=== PATIENT | male | born 1960 | race Caucasian/White ===

== ENCOUNTER 2017-08-29 07:09 | Inpatient (IN) | payer OTHER ==
[~2017-08-29] VITALS: Ht 175.3 cm; Wt 87.9 kg
[~2017-08-29 07:09] MED LIST: LISI-170 PO
[2017-08-29 07:49] LABS: HEMATOCRIT 46.5 % (39.2-51.8); HEMOGLOBIN 16.1 g/dL (13.7-18.0)
[2017-08-29 08:00] LABS: BLOOD UREA NITROGEN 9 mg/dL (7-18)
[2017-08-29] MEDS ORDERED: OMNIPAQUE 350 MG/ML, 100ML BOTTLE ONE (08:58)
[2017-08-29] MEDS ORDERED: AMPICILLIN/SULBACTAM 3 GM in SODIUM CHLORIDE 0.9% 100 ML IV ONE (10:00)
[2017-08-29] MEDS ORDERED: METRONIDAZOLE PMX 500MG/100ML 100 ML IV ONE (10:00)
[2017-08-29] MEDS ORDERED: METRONIDAZOLE PMX 500MG/100ML 100 ML ONE (10:16)
[2017-08-29] MEDS ORDERED: ACETAMINOPHEN 500 MG TABLET PO ONE (11:30)
[2017-08-29] MEDS ORDERED: hydrALAzine 20 MG/ML, 1ML IV ONE (11:30)
[2017-08-29] MEDS ORDERED: ACETAMINOPHEN 500 MG TABLET ONE (11:33)
[2017-08-29] MEDS ORDERED: hydrALAzine 20 MG/ML, 1ML ONE (11:33)
[2017-08-29] MEDS ORDERED: POLYETHYLENE GLYCOL 17 GM PACKET PO PRN (13:00)
[2017-08-29] MEDS ORDERED: ONDANSETRON 2MG/ML, 2ML IVPush PRN (13:00)
[2017-08-29] MEDS ORDERED: BISACODYL 10 MG SUPP PR PRN (13:00)
[2017-08-29] MEDS ORDERED: morphine SULFATE 10 MG/ML, 1ML IVPush PRN (13:00)
[2017-08-29] MEDS ORDERED: LABETALOL 5MG/ML, 20ML IVPush PRN (13:00)
[2017-08-29] MEDS ORDERED: DOCUSATE 100 MG CAPSULE PO PRN (13:00)
[2017-08-29] MEDS ORDERED: HYDROcodone/APAP 5/325 TABLET PO PRN (13:00)
[2017-08-29] MEDS ORDERED: ACETAMINOPHEN 325 MG TABLET PO PRN (13:00)
[2017-08-29] MEDS: SODIUM CHLORIDE 0.9% 1,000 ML IV SCH (13:30)
[2017-08-29 14:09] VITALS: BP 178/102
[2017-08-29] MEDS: ENALAPRILAT 1.25 MG/ML, 2ML IVPush PRN (14:09)
[2017-08-29 14:36] VITALS: BP 165/87
[2017-08-29] MEDS ORDERED: KETOROLAC 30 MG/1 ML IM PRN (15:00)
[2017-08-29 16:30] VITALS: BP 142/84
[2017-08-29] MEDS: PIPERACILLIN/TAZO/PMX 3.375GM 50 ML IV SCH ×2 (16:31→22:40)
[2017-08-29] MEDS: ENOXAPARIN 40 MG/0.4 ML SQ SCH (16:32)
[2017-08-29 20:39] VITALS: BP 158/97
[2017-08-30 01:51] VITALS: BP 154/74
[2017-08-30] MEDS: PIPERACILLIN/TAZO/PMX 3.375GM 50 ML IV SCH ×4 (05:23→22:43)
[2017-08-30 05:45] LABS: HEMATOCRIT 43.6 % (39.2-51.8); HEMOGLOBIN 15.2 g/dL (13.7-18.0); WHITE BLOOD COUNT 8.4 x10^3/uL (3.4-10)
[2017-08-30 05:51] LABS: ASPARTATE AMINO TRANSFERASE 9 U/L (15-37); BLOOD UREA NITROGEN 8 mg/dL (7-18)
[2017-08-30 09:05] VITALS: BP 159/74
[2017-08-30] MEDS: SODIUM CHLORIDE 0.9% 1,000 ML IV SCH (10:45)
[2017-08-30] MEDS ORDERED: KETOROLAC 30 MG/1 ML IM PRN (11:30)
[2017-08-30 12:55] VITALS: BP 176/101
[2017-08-30] MEDS: ENOXAPARIN 40 MG/0.4 ML SQ SCH (13:01)
[2017-08-30] MEDS: ENALAPRILAT 1.25 MG/ML, 2ML IVPush PRN (13:02)
[2017-08-30 14:00] VITALS: BP 159/90
[2017-08-30 18:34] VITALS: BP 128/77
[2017-08-30 19:03] VITALS: BP 142/92
[2017-08-30] MEDS: DOCUSATE 100 MG CAPSULE PO SCH (21:00)
[2017-08-31 02:15] VITALS: BP 181/94
[2017-08-31] MEDS: ENALAPRILAT 1.25 MG/ML, 2ML IVPush PRN (02:20)
[2017-08-31] MEDS: PIPERACILLIN/TAZO/PMX 3.375GM 50 ML IV SCH ×4 (04:27→23:43)
[2017-08-31 07:31] VITALS: BP 142/91
[2017-08-31] MEDS: DOCUSATE 100 MG CAPSULE PO SCH ×2 (08:01→19:31)
[2017-08-31] MEDS: LISINOPRIL 5 MG TABLET PO SCH (08:03)
[2017-08-31] MEDS: ENOXAPARIN 40 MG/0.4 ML SQ SCH (13:02)
[2017-08-31 13:21] VITALS: BP 138/83
[2017-08-31 18:45] VITALS: BP 162/89
[2017-09-01 01:02] VITALS: BP 157/89
[2017-09-01 05:39] LABS: HEMATOCRIT 44.6 % (39.2-51.8); HEMOGLOBIN 15.3 g/dL (13.7-18.0); WHITE BLOOD COUNT 7.7 x10^3/uL (3.4-10)
[2017-09-01 05:48] LABS: BLOOD UREA NITROGEN 9 mg/dL (7-18)
[2017-09-01] MEDS: PIPERACILLIN/TAZO/PMX 3.375GM 50 ML IV SCH ×3 (05:58→18:58)
[2017-09-01 08:33] VITALS: BP 153/84
[2017-09-01] MEDS: LISINOPRIL 5 MG TABLET PO SCH (09:02)
[2017-09-01] MEDS: DOCUSATE 100 MG CAPSULE PO SCH ×2 (09:02→21:00)
[2017-09-01] MEDS: ENOXAPARIN 40 MG/0.4 ML SQ SCH (13:33)
[2017-09-01 15:09] VITALS: BP 153/73
[2017-09-01 18:30] VITALS: BP 157/95
[2017-09-01] MEDS: DIPHENHYDRAMINE 25 MG CAPSULE PO PRN (19:38)
[2017-09-02] MEDS: PIPERACILLIN/TAZO/PMX 3.375GM 50 ML IV SCH ×2 (01:23→06:27)
[2017-09-02] MEDS: DIPHENHYDRAMINE 25 MG CAPSULE PO PRN ×2 (01:25→07:35)
[2017-09-02 01:44] VITALS: BP 148/86
[2017-09-02 06:56] VITALS: BP 169/112
[2017-09-02 07:30] VITALS: BP 158/91
[2017-09-02] MEDS ORDERED: methylPREDNISolone SOD SUCC 125 MG/2 ML IVPush STA (08:03)
[2017-09-02] MEDS: LISINOPRIL 5 MG TABLET PO SCH (08:48)
[2017-09-02] MEDS: DOCUSATE 100 MG CAPSULE PO SCH ×2 (08:48→21:00)
[2017-09-02] MEDS: metroNIDAZOLE 500 MG TABLET PO SCH ×2 (10:37→18:36)
[2017-09-02] MEDS: LOSARTAN 50MG TABLET PO SCH (10:38)
[2017-09-02] MEDS: CIPROFLOXACIN 500 MG TABLET PO SCH ×2 (10:38→21:45)
[2017-09-02 13:40] VITALS: BP 146/88
[2017-09-02] MEDS: ENOXAPARIN 40 MG/0.4 ML SQ SCH (13:59)
[2017-09-02 19:10] VITALS: BP 151/83
[2017-09-03] MEDS: metroNIDAZOLE 500 MG TABLET PO SCH ×2 (01:22→10:26)
[2017-09-03 01:25] VITALS: BP 156/72
[2017-09-03 06:53] VITALS: BP 130/73
[2017-09-03] MEDS: CIPROFLOXACIN 500 MG TABLET PO SCH (08:24)
[2017-09-03] MEDS: LOSARTAN 50MG TABLET PO SCH (08:24)
[2017-09-03] MEDS: DOCUSATE 100 MG CAPSULE PO SCH (08:24)
[2017-09-03] MEDS ORDERED: METR500T PO (10:52)
[2017-09-03] MEDS ORDERED: LOSA50TA2 PO (10:52)
[2017-09-03] MEDS ORDERED: CIPR500T87 PO (10:52)
[2017-09-03] MEDS ORDERED: BISACODYL 10 MG SUPP PR PRN (20:00)
[2017-09-03] MEDS ORDERED: HYDROcodone/APAP 5/325 TABLET PO PRN (20:00)
[2017-09-03] MEDS ORDERED: ACETAMINOPHEN 325 MG TABLET PO PRN (20:00)
[2017-09-03] MEDS ORDERED: LABETALOL 5MG/ML, 20ML IVPush PRN (20:00)
[2017-09-03] MEDS ORDERED: ONDANSETRON 2MG/ML, 2ML IVPush PRN (20:00)
[2017-09-03] MEDS ORDERED: morphine SULFATE 10 MG/ML, 1ML IVPush PRN (20:00)
== END 2017-09-03 12:50 | disposition home or self-care (01) | DRG 392 ==
LOC: ED 09:28 → EDIP 11:36 → 4NOR 13:10
PROVIDERS: ADMIT Hospitalist; ATTEND Hospitalist
DX: K57.80 Diverticulitis of intestine, part unspecified, with perforation and abscess without bleeding (principal); I11.0 Hypertensive heart disease with heart failure; E44.1 Mild protein-calorie malnutrition; I50.9 Heart failure, unspecified; Z88.6 Allergy status to analgesic agent; Z88.8 Allergy status to other drugs, medicaments and biological substances; Z91.018 Allergy to other foods; Z68.28 Body mass index [BMI] 28.0-28.9, adult; F12.90 Cannabis use, unspecified, uncomplicated; F17.290 Nicotine dependence, other tobacco product, uncomplicated; T46.4X5A Adverse effect of angiotensin-converting-enzyme inhibitors, initial encounter; T78.3XXA Angioneurotic edema, initial encounter; Z80.8 Family history of malignant neoplasm of other organs or systems; Z82.5 Family history of asthma and other chronic lower respiratory diseases; Z83.3 Family history of diabetes mellitus
CPT/HCPCS: 36415; 74177; 80048; 80053; 81003; 82040; 85025; 87040; 93005; 96365; 96375; J0295; J1650; J2543; Q9967; J0360; J2930; J7030; J7512; Q0163

== ENCOUNTER 2021-04-01 10:16 | Emergency (ER) | payer OTHER ==
[~2021-04-01] VITALS: Ht 177.8 cm; Wt 80.6 kg
[~2021-04-01 10:16] MED LIST changes: +AMLO-150 PO; +AMOX1TAB12 PO; +CIPR500T87 PO; +CYCL10TA2 PO; +LOSA50TA2 PO; +METR-90 PO; +METR500T PO
--- NOTE | 2021-04-01 10:36 | NUR ---
PT AMBULATORY TO ROOM 7 W/ C/O L SIDE ABD BULGING STARTED 6 WKS AGO WHERE PT HAS COLOSTOMY. STATES NO CHANGES IN OSTOMY OUTPUT. PT ALSO STATES BILAT FLANK PAIN CURRENTLY ON R SIDE. PT ALSO STATES HIS LEFT TESTICLE HAS INCREASED IN SIZE AND THE RIGHT TESTICLE HAS SHRUNK. STATES IT STARTED 3 WKS AGO. DENIES ANY CHANGES IN URINARY OUTPUT. PT RESTING ON GURNEY. NADN. MONITORS APPLIED. VSS. WARM BLANKET PROVIDED. CALL LIGHT IN REACH.
--- NOTE | 2021-04-01 11:02 | NUR ---
ERP DR. PUCKETT AT BEDSIDE FOR EVAL.
[2021-04-01 11:34] LABS: MICROSCOPIC NOT IND
[2021-04-01 11:36] LABS: BASOPHILS % (AUTO) 1 % (0-1); EOSINOPHILS % (AUTO) 2 % (1-7); LYMPHOCYTES % (AUTO) 31 % (22-44); MEAN CORPUSCULAR HGB CONC 35.2 g/dL (33.2-36.2); MEAN PLATELET VOLUME 7.9 fL (7.4-10.4); MONOCYTES % (AUTO) 10 % (2-9); NEUTROPHILS % (AUTO) 56 % (42-75); PLATELET COUNT 270 x10^3/uL (130-400); RED BLOOD COUNT 5.23 x10^6/uL (4.38-5.82); RED CELL DISTRIBUTION WIDTH 13.5 % (9.4-14.8)
[2021-04-01 11:42] LABS: ALBUMIN 3.7 g/dL (3.4-5.0); ANION GAP 6 mmol/L (5-15); CALCIUM 8.4 mg/dL (8.5-10.1); CHLORIDE 106 mmol/L (98-107); CREATININE 0.93 mg/dL (0.7-1.3)
--- NOTE | 2021-04-01 11:54 | NUR ---
PT RESTING ON GURNEY. NAIK. BP REMAINS ELEVATED. PT REMAINS ANXIOUS. STATES "MY BLOOD PRESSURE IS PROBABLY STILL HIGH BECAUSE LAST TIME I WAS HERE I ALMOST SO I'M JUST A LITTLE NERVOUS". Addendum: 04/01/21 at [address] PUCKETT NOTIFIED OF BP.
--- NOTE | 2021-04-01 12:11 | NUR ---
PT CHART REVIEWED AND PLACED FOR RECHECK.
--- NOTE | 2021-04-01 12:54 | NUR ---
ERP DR. PUCKETT AT BEDSIDE FOR RE-EVAL.
[2021-04-01 12:58] VITALS: BP 171/96
== END 2021-04-01 13:18 | disposition home or self-care (01) ==
LOC: ED 10:56
DX: N43.3 Hydrocele, unspecified (principal); R19.00 Intra-abdominal and pelvic swelling, mass and lump, unspecified site; M54.5 Low back pain; I11.0 Hypertensive heart disease with heart failure; I50.9 Heart failure, unspecified
CPT/HCPCS: 36415; 76870; 80048; 81003; 82040; 85025; 99284

== ENCOUNTER → 2021-06-05 | Outpatient (CLI) | payer OTHER ==
[~2021-06-05] MED LIST changes: +CHOL10003 PO; +MULT-795 PO
[2021-06-05 10:05] LABS: BASOPHILS % (AUTO) 1 % (0-1); EOSINOPHILS % (AUTO) 3 % (1-7); LYMPHOCYTES % (AUTO) 26 % (22-44); MEAN CORPUSCULAR HEMOGLOBIN 31.7 pg (27.5-34.5); MEAN CORPUSCULAR HGB CONC 35.2 g/dL (33.2-36.2); MEAN PLATELET VOLUME 7.7 fL (7.4-10.4); MONOCYTES % (AUTO) 8 % (2-9); NEUTROPHILS % (AUTO) 61 % (42-75); PLATELET COUNT 258 x10^3/uL (130-400); RED BLOOD COUNT 5.21 x10^6/uL (4.38-5.82); RED CELL DISTRIBUTION WIDTH 13.3 % (9.4-14.8)
[2021-06-05 10:15] LABS: CHLORIDE 108 mmol/L (98-107)
[2021-06-05 10:20] LABS: ALANINE AMINOTRANSFERASE 26 U/L (12-78); ALBUMIN 3.4 g/dL (3.4-5.0); ALKALINE PHOSPHATASE 51 U/L (45-117); ANION GAP 4 mmol/L (5-15); BILIRUBIN,TOTAL 0.8 mg/dL (0.2-1.0); CALCIUM 8.6 mg/dL (8.5-10.1); CREATININE 0.95 mg/dL (0.7-1.3); TOTAL PROTEIN 6.7 g/dL (6.4-8.2)
== END | disposition home or self-care (01) ==
LOC: STAR 09:10
PROVIDERS: ATTEND Colon & Rectal Surgery
DX: Z01.812 Encounter for preprocedural laboratory examination (principal); Z20.822 Contact with and (suspected) exposure to COVID-19; Z01.818 Encounter for other preprocedural examination; I44.7 Left bundle-branch block, unspecified
CPT/HCPCS: 36415; 80053; 85025; 93005; U0003; U0005

== ENCOUNTER 2021-06-11 06:20 | Inpatient (IN) | payer OTHER ==
[~2021-06-11] VITALS: Ht 175.3 cm; Wt 85.5 kg
[2021-06-11] MEDS ORDERED: FLUORESCEIN SODIUM 500 MG/5 ML ONE (06:25)
[2021-06-11] MEDS ORDERED: BUPIVACAINE/PF 0.5% ONE (06:25)
[2021-06-11] MEDS ORDERED: EPINEPHRINE 1 MG/ML, 1ML ONE (06:25)
[2021-06-12 11:09] VITALS: BP 156/91
[2021-06-12] MEDS ORDERED: AMLO-150 PO (11:09)
[2021-06-12] MEDS ORDERED: CHLORHEXIDINE 15 ML UDC ONE (11:15)
[2021-06-12] MEDS ORDERED: LACTATED RINGERS 1,000 ML IV SCH (11:30)
[2021-06-12] MEDS ORDERED: CHLORHEXIDINE 15 ML UDC PO ONE (11:30)
[2021-06-12] MEDS ORDERED: BUPIVACAINE/PF 0.5% ONE (12:53)
[2021-06-12] MEDS ORDERED: FLUORESCEIN SODIUM 500 MG/5 ML ONE (12:53)
[2021-06-12] MEDS ORDERED: INDOCYANINE GREEN 25 MG VIAL ONE (12:53)
[2021-06-12] MEDS ORDERED: FENTANYL PF 100 MCG/2ML ONE ×2 (17:47→18:57)
[2021-06-12] MEDS: FENTANYL PF 100 MCG/2ML IV PRN ×4 (17:50→18:59)
[2021-06-12] MEDS ORDERED: LABETALOL 5MG/ML, 20ML IV PRN (18:30)
[2021-06-12] MEDS ORDERED: OXYcodone 5 MG/5 ML ORAL.SOL UDC PO PRN (18:30)
[2021-06-12] MEDS ORDERED: hydrALAzine 20 MG/ML, 1ML IV PRN (18:30)
[2021-06-12] MEDS ORDERED: ACETAMINOPHEN 325 MG TABLET PO PRN (18:30)
[2021-06-12] MEDS ORDERED: MEPERIDINE/PF 25MG/0.5ML IVPush PRN (18:30)
[2021-06-12] MEDS ORDERED: PROMETHAZINE 25 MG/ML, 1ML IVPush PRN (18:30)
[2021-06-12] MEDS ORDERED: hydrALAzine 20 MG/ML, 1ML ONE (18:52)
[2021-06-12] MEDS ORDERED: ACETAMINOPHEN 650 MG/20.3 ML UDC ONE (18:57)
[2021-06-12] MEDS ORDERED: OXYcodone 5 MG/5 ML ORAL.SOL UDC ONE (18:57)
[2021-06-12] MEDS ORDERED: DEXAMETHASONE 4 MG/ML, 1ML IVPush PRN (21:00)
[2021-06-12] MEDS: ACETAMINOPHEN 500 MG TABLET PO SCH (21:00)
[2021-06-12] MEDS ORDERED: OXYcodone IR 5MG TABLET PO PRN (21:00)
[2021-06-12] MEDS ORDERED: LORazepam 2 MG/ML, 1ML IVPush PRN (21:00)
[2021-06-12] MEDS ORDERED: CALCIUM CARBONATE 500 MG TAB.CHEW PO PRN (21:00)
[2021-06-12] MEDS ORDERED: SCOPOLAMINE PATCH, 1.5MG PATCH.TD72 TD PRN (21:00)
[2021-06-12] MEDS ORDERED: TRAZODONE 50MG TABLET PO PRN (21:00)
[2021-06-12] MEDS ORDERED: HYDROmorphone 1 MG/ML, 1ML INJ IVPush PRN (21:00)
[2021-06-12] MEDS ORDERED: HALOPERIDOL 5 MG/ML IVPush PRN (21:00)
[2021-06-12] MEDS ORDERED: LORazepam 1MG TABLET PO PRN (21:00)
[2021-06-12] MEDS ORDERED: DIPHENHYDRAMINE 50 MG/ML, 1ML IVPush PRN (21:00)
[2021-06-12] MEDS ORDERED: ONDANSETRON 2MG/ML, 2ML IV PRN (21:00)
[2021-06-12] MEDS ORDERED: DIPHENHYDRAMINE 25 MG CAPSULE PO PRN (21:00)
[2021-06-12] MEDS: KETOROLAC 30 MG/1 ML IVPush SCH (21:27)
[2021-06-12] MEDS: LACTATED RINGERS 1,000 ML IV SCH (21:27)
[2021-06-13 00:19] VITALS: BP 114/69
[2021-06-13 02:50] VITALS: BP 136/94
[2021-06-13] MEDS: ACETAMINOPHEN 500 MG TABLET PO SCH ×4 (02:54→20:55)
[2021-06-13] MEDS: KETOROLAC 30 MG/1 ML IVPush SCH ×4 (02:54→20:54)
[2021-06-13 04:39] LABS: ALBUMIN 2.9 g/dL (3.4-5.0); ANION GAP 5 mmol/L (5-15); CALCIUM 8.7 mg/dL (8.5-10.1); CHLORIDE 104 mmol/L (98-107); CREATININE 1.13 mg/dL (0.7-1.3)
[2021-06-13 04:41] LABS: BASOPHILS % (AUTO) 0 % (0-1); EOSINOPHILS % (AUTO) 0 % (1-7); LYMPHOCYTES % (AUTO) 5 % (22-44); MEAN CORPUSCULAR HEMOGLOBIN 31.3 pg (27.5-34.5); MEAN CORPUSCULAR HGB CONC 34.6 g/dL (33.2-36.2); MEAN PLATELET VOLUME 8.2 fL (7.4-10.4); MONOCYTES % (AUTO) 6 % (2-9); NEUTROPHILS % (AUTO) 88 % (42-75); PLATELET COUNT 244 x10^3/uL (130-400); RED BLOOD COUNT 4.97 x10^6/uL (4.38-5.82); RED CELL DISTRIBUTION WIDTH 13.3 % (9.4-14.8)
[2021-06-13] MEDS: AMLODIPINE 5 MG TABLET PO SCH (09:28)
[2021-06-13] MEDS: ENOXAPARIN 40 MG/0.4 ML SQ SCH (09:28)
[2021-06-13 14:00] VITALS: BP 160/85
[2021-06-13] MEDS: LACTATED RINGERS 1,000 ML IV SCH (17:09)
[2021-06-13 20:38] VITALS: BP 160/64
[2021-06-13 20:39] VITALS: BP 164/91
[2021-06-14 02:38] VITALS: BP 151/88
[2021-06-14] MEDS: ACETAMINOPHEN 500 MG TABLET PO SCH ×2 (02:55→08:56)
[2021-06-14] MEDS: KETOROLAC 30 MG/1 ML IVPush SCH ×2 (02:55→08:56)
[2021-06-14 03:35] LABS: ALBUMIN 2.6 g/dL (3.4-5.0); ANION GAP 4 mmol/L (5-15); BASOPHILS % (AUTO) 1 % (0-1); CALCIUM 7.9 mg/dL (8.5-10.1); CHLORIDE 108 mmol/L (98-107); CREATININE 0.85 mg/dL (0.7-1.3); EOSINOPHILS % (AUTO) 1 % (1-7); LYMPHOCYTES % (AUTO) 24 % (22-44); MEAN CORPUSCULAR HEMOGLOBIN 31.4 pg (27.5-34.5); MEAN PLATELET VOLUME 8.4 fL (7.4-10.4); MONOCYTES % (AUTO) 8 % (2-9); NEUTROPHILS % (AUTO) 67 % (42-75); PLATELET COUNT 207 x10^3/uL (130-400); RED BLOOD COUNT 4.57 x10^6/uL (4.38-5.82)
[2021-06-14 07:50] VITALS: BP 178/88
[2021-06-14] MEDS: ENOXAPARIN 40 MG/0.4 ML SQ SCH (08:56)
[2021-06-14] MEDS: AMLODIPINE 5 MG TABLET PO SCH (08:56)
[2021-06-14] MEDS ORDERED: OXYC-302 PO (10:16)
[2021-06-14 10:30] VITALS: BP 158/84
[2021-06-14 13:00] VITALS: BP 158/91
[2021-06-14] MEDS: LACTATED RINGERS 1,000 ML IV SCH (13:16)
== END 2021-06-14 14:20 | disposition home or self-care (01) | DRG 346 ==
LOC: ORIP 06:20 → UNDOADMIN 06:20 → ORIP 06-12 10:41 → 4NE 06-12 19:45
PROVIDERS: ADMIT Colon & Rectal Surgery; ATTEND Colon & Rectal Surgery
PROC: 8E0W4CZ Robotic Assisted Procedure of Trunk Region, Percutaneous Endoscopic Approach (ICD-10-PCS; 2021-06-12)
PROC: 0DSL4ZZ Reposition Transverse Colon, Percutaneous Endoscopic Approach (ICD-10-PCS; principal; 2021-06-12 13:30)
DX: Z43.3 Encounter for attention to colostomy (principal)
CPT/HCPCS: 36415; S0020; 80048; 82040; 83735; 85025; 86850; 86900; 88307; C1729; G0378; J0171; J0690; J1100; J1650; J1885; J2250; J2405; J2704; J2710; J3010; J0330; J0360; J7120